=== PATIENT | female | born 1970 | race African-American/Black ===

== ENCOUNTER 2024-07-16 15:04 | Emergency (ER) | payer MEDICAID ==
[~2024-07-16] VITALS: Ht 167.6 cm; Wt 85.0 kg
[2024-07-16 15:07] VITALS: O2SAT 98
[2024-07-16] MEDS: DIPHENHYDRAMINE 50MG/ML VIAL IV ONE (16:20)
[2024-07-16] MEDS: DEXAMETHASONE 10 MG/ML VIAL IV ONE (16:20)
[2024-07-16] MEDS: EPINEPHRINE 1:1000 1 MG/ML AMP IM ONE (16:20)
[2024-07-16 16:49] LABS: HEMATOCRIT. 42.6 % (36.0-48.0); HEMOGLOBIN. 13.8 g/dL (12.0-16.0); MEAN CORPUSCULAR HEMOGLOBIN 26.7 pg (28.0-32.0); MEAN CORPUSCULAR HGB CONC 32.3 g/dL (31.0-37.0); MEAN CORPUSCULAR VOLUME 82.7 fL (81.0-99.0); MEAN PLATELET VOLUME 9.1 fl (7.4-10.4); PLATELET 136 x1000/uL (130-400); RED BLOOD CELL COUNT 5.16 mill/uL (4.2-5.4); RED CELL DISTRIBUTION WIDTH 13.4 % (11.6-14.6); WHITE BLOOD COUNT 5.9 x1000/uL (4.5-11.0)
[2024-07-16 16:50] LABS: CHLORIDE 101 mEq/L (98-107); SODIUM 141 mEq/L (136-145)
[2024-07-16 16:51] LABS: CALCIUM 9.3 mg/dL (8.7-10.4); CARBON DIOXIDE 29 mEq/L (21-32)
[2024-07-16 16:55] LABS: DIFFERENTIAL COMMENT 1
[2024-07-16 16:56] LABS: CREATININE 0.6 mg/dL (0.6-1.0); GLUCOSE 101 mg/dL (70-105); UREA NITROGEN BLOOD 8 mg/dL (9-23)
[2024-07-16 17:06] LABS: POTASSIUM 2.4 mEq/L (3.5-5.1)
[2024-07-16 20:04] VITALS: TEMP 37
[2024-07-16 20:05] VITALS: BP 137/87; PULSE 123; RESP 18; O2SAT 97
[2024-07-16] MEDS ORDERED: POTA-205 MT (20:08)
[2024-07-16] MEDS ORDERED: EPIN0.3P3 IM (20:08)
[2024-07-16] MEDS ORDERED: DIPH25CA83 MT (20:08)
[2024-07-16] MEDS ORDERED: POTASSIUM CHLORIDE 20MEQ/PACKET PO ONE (20:15)
[2024-07-16 21:52] LABS: GIANT PLATELETS 1+; PLATELET ESTIMATE SLIGHTLY DECREASED
== END 2024-07-16 20:16 | disposition home or self-care (01) ==
LOC: ER 15:21
DX: T78.2XXA Anaphylactic shock, unspecified, initial encounter (principal); E87.6 Hypokalemia; I10 Essential (primary) hypertension; Z88.0 Allergy status to penicillin; Z86.59 Personal history of other mental and behavioral disorders; X58.XXXA Exposure to other specified factors, initial encounter
CPT/HCPCS: 80048; 85025; 36415; 96372; 96374; 96375; 99291; J1100; J1200; J3490; Z7610 ×4